=== PATIENT | female | born 1935 ===

== ENCOUNTER 2018-01-09 10:03 | Inpatient (IN) | payer OTHER ==
[~2018-01-09] VITALS: Ht 162.6 cm; Wt 73.0 kg
[2018-01-09] MEDS ORDERED: ZOLOFT20 MG/1 ML (10:23)
[2018-01-09] MEDS ORDERED: ARICEPT5 MG (10:24)
[2018-01-09] MEDS ORDERED: SYNTHROID75 MCG (10:24)
[2018-01-09] MEDS ORDERED: HYZAAR 100-12.1 EACH (10:24)
[2018-01-09] MEDS ORDERED: PLAVIX75 MG (10:24)
[2018-01-09] MEDS ORDERED: PNEU16DI2 (10:24)
[2018-01-11] MEDS ORDERED: TOPROL XL50 M1 PO (09:05)
[2018-01-11] MEDS ORDERED: ZOLOFT50 MG PO (09:05)
[2018-01-11] MEDS ORDERED: ARICEPT5 MG PO (09:05)
[2018-01-11] MEDS ORDERED: SYNTHROID100 MCG PO (09:05)
[2018-01-11] MEDS ORDERED: PLAVIX75 MG PO (09:05)
[2018-01-11] MEDS ORDERED: HYZAAR 50-12.51 EACH PO (09:05)
[2018-01-11] MEDS ORDERED: ASPIR 8181 MG PO (09:05)
== END 2018-01-11 22:19 | disposition home or self-care (01) | DRG 282 ==
LOC: ER 10:03 → SEC-K 14:21 → MEDJ 14:21 → MEDI 01-10 04:30 → MEDJ 01-10 04:30
PROC: B246ZZZ Ultrasonography of Right and Left Heart (ICD-10-PCS; principal; 2018-01-09)
PROC: BW28ZZZ Computerized Tomography (CT Scan) of Head (ICD-10-PCS; 2018-01-09)
PROC: 4A033R1 Measurement of Arterial Saturation, Peripheral, Percutaneous Approach (ICD-10-PCS; 2018-01-09)
PROC: 4A12X4Z Monitoring of Cardiac Electrical Activity, External Approach (ICD-10-PCS; 2018-01-10)
DX: I21.4 Non-ST elevation (NSTEMI) myocardial infarction (principal); I24.9 Acute ischemic heart disease, unspecified; F03.90 Unspecified dementia, unspecified severity, without behavioral disturbance, psychotic disturbance, mood disturbance, and anxiety; E03.8 Other specified hypothyroidism; E78.4 Other hyperlipidemia; S00.01XA Abrasion of scalp, initial encounter; W18.39XA Other fall on same level, initial encounter; Y93.89 Activity, other specified; Y92.098 Other place in other non-institutional residence as the place of occurrence of the external cause; Y99.8 Other external cause status; I10 Essential (primary) hypertension